=== PATIENT | male | born 1995 | race Native Hawaiian/Other Pacific Islander ===

== ENCOUNTER 2016-07-04 18:16 | Emergency (ER) | payer OTHER ==
[~2016-07-04] VITALS: Ht 167.6 cm; Wt 101.8 kg
[2016-07-04 18:30] VITALS: TEMP 36.5; Ht 167.6 cm; Wt 101.8 kg
--- NOTE | 2016-07-04 19:17 | DIAGNOSTIC IMAGING REPORT ---
LEFT ANKLE 3 VIEWS HISTORY: Left ankle pain. left, medial pain after twisting injury COMPARISON: None. FINDINGS: There is no fracture or dislocation. Diffuse soft tissue swelling. No radiopaque foreign bodies. IMPRESSION: No fractures. Electronically signed by: Nasim Giraldo M.D. 07/04/2016 7:16 PM Dictated Date/Time: 07/04/2016 7:15 PM
--- NOTE | 2016-07-04 19:22 | EMERGENCY ROOM VISIT NOTE ---
ED Visit Note First contact with patient: 18:34 CHIEF COMPLAINT: Left ankle injury yesterday HISTORY OF PRESENT ILLNESS: Patient is a 21-year-old male who sustained an injury to the left ankle with a twisting motion yesterday while playing soccer. He had stopped playing. Complains of swelling and pain. The patient is able to bear weight on the foot but with pain. Constant pain, moderate to severe, worse with movement, weight bearing, and the dependent position. No knee pain. He tried soaking it in water in the tub. REVIEW OF SYSTEMS: Review of systems as per HPI. All other systems reviewed were negative. At least 6 systems reviewed. PMH: Electronic medical records are reviewed and summarized as above/below. See Problem List. SOCIAL HISTORY: Patient lives at home. College student from [employer]. Nonsmoker. PHYSICAL EXAM: Vital Signs: Reviewed Nurse's notes. MENTAL STATUS: Alert, oriented, and cooperative. The ankle is swollen and tender over the medial aspect but the skin is intact and there is no ligamentous instability. No pain over the 5th metatarsal or fibular head. Lisfranc joint is negative. There is no deformity. The foot and toes are warm and well-perfused. Sensation to pain and light touch is intact. EMERGENCY DEPARTMENT COURSE: X-ray reveals no fracture, only the soft tissue swelling. A compression sleeve and gel splint were applied to the ankle under my direction and the position was satisfactory. Crutches were issued and patient was instructed on a non weight bearing gait. Differential diagnosis include foot verses ankle sprain/fracture, contusion, dislocation. LEFT ANKLE 3 VIEWS HISTORY: Left ankle pain. left, medial pain after twisting injury COMPARISON: None. FINDINGS: There is no fracture or dislocation. Diffuse soft tissue swelling. No radiopaque foreign bodies. IMPRESSION: No fractures. Problem List Medical Problems: (1) Asthma Status: Chronic (2) Right upper quadrant abdominal pain Status: Resolved Current/Historical Medications No Active Prescriptions or Reported Meds Allergies Coded Allergies: No Known Allergies (Unverified , 07/04/16) Vital Signs Date Time Temp Pulse Resp B/P Pulse Ox O2 Delivery O2 Flow Rate FiO2 07/04/16 20:21 72 20 147/81 99 07/04/16 18:30 36.5 82 18 130/71 98 Departure Information Impression Primary Impression: Left ankle sprain Prescriptions No Active Prescriptions or Reported Meds Referrals [facility] (PCP) Patient Instructions My [facility] Additional Instructions Ibuprofen(Motrin, Advil) may be used for fever or pain. Use 600mg every six hours as needed. Take with food. Avoid using more than 2400mg in a 24 hour period. Do not use 2400mg per day for more than three consecutive days without physician direction. Prolonged inappropriate use can lead to stomach upset or ulcers. This medication can be taken if you need to drive, work, or perform activities which may be dangerous when taking narcotic pain medication. (AND/OR) Acetaminophen(Tylenol) may be used for fever or pain. Use 1000mg every six hours as needed. Avoid using more than 3000mg in a 24 hour period. This medication can be taken if you need to drive, work, or perform activities which may be dangerous when taking narcotic pain medication. Ice compresses for 20 minutes at a time four times daily for 2-3 days. Use the gel splint and crutches as instructed. Rest and elevate your injury. Continue current medications. Return to the ER immediately for any numbness, tingling, severe pain, extreme swelling in the extremity or as needed. Followup with [facility] or orthopedic surgery if no improvement in 5-7 days.
[2016-07-04 20:21] VITALS: BP 147/81; PULSE 72; O2SAT 99
== END 2016-07-04 20:21 | disposition home or self-care (01) ==
LOC: C.EDB 18:17 → C.EDD 20:21
DX: S93.402A Sprain of unspecified ligament of left ankle, initial encounter (principal); X50.1XXA Overexertion from prolonged static or awkward postures, initial encounter; J45.909 Unspecified asthma, uncomplicated; Y93.66 Activity, soccer